=== PATIENT | female | born 1975 ===

== ENCOUNTER 2020-06-28 16:40 | Emergency (ER) | payer OTHER, SELFPAY ==
[2020-06-28 16:48] VITALS: BP 144/93; PULSE 105; RESP 16; TEMP 37.1; O2SAT 99
--- NOTE | 2020-06-28 16:54 | ED.GENADULT ---
HPI - General Adult General Chief complaint: Upper Respiratory Infection Stated complaint: sore inside nose Time Seen by Provider: 06/28/20 16:55 Source: patient and RN notes reviewed Mode of arrival: ambulatory Limitations: no limitations History of Present Illness HPI narrative: 44-year-old female presents with complaints of redness, warmth, tenderness, and swelling to right nostril for the past 2 days. Jose says approximately 1-2 weeks ago she noted a sore to inside of RT nostril then redness and warmth. No treatment. Denies radiation of tenderness, redness, or swelling. Exacerbating factors sneezing. Denies open areas or drainage. Denies fever or chills. No facial swelling. The patient reports she have not been diagnosed with COVID-19. The patient reports she is not waiting for the results of a COVID-19 lab test. The patient reports she do not have weakness or fatigue. The patient reports she do not have a new or worsening cough or shortness of breath. Denies chest pain. The patient reports she do not have any rhinorrhea, congestion, sore throat, loss of taste, nausea, vomiting, abdominal pain, and diarrhea. Tolerating po intake well. Denies recent traveling. Denies concerns for COVID-19 or exposures been home with limited outdoor exposure except for essential household needs and return home. At this time, patient is not suspected of having COVID-19. Some parts of this dictation were generated by voice recognition software and may contain typographical and/or grammatical inaccuracies. Related Data Allergies Allergy/AdvReac Type Severity Reaction Status Date / Time ibuprofen Allergy Unknown Rash Verified 06/28/20 16:51 Penicillins Allergy Unknown Rash Verified 06/28/20 16:51 Review of Systems Review of Systems: Narrative: CONSTITUTIONAL: Denies fever, chills, sweats. EYES: Denies visual changes, redness, discharge. ENT: Denies rhinorrhea, congestion, sore throat, otalgia. CARDIOVASCULAR: Denies chest pain, palpitations, edema. RESPIRATORY: Denies dyspnea, wheezing, cough. GASTROINTESTINAL: Denies abdominal pain, nausea, vomiting, diarrhea. SKIN: Complaints of redness, warmth, tenderness, and swelling to right nostril. MUSCULOSKELETAL: Denies acute back pain, joint pain, or myalgia. NEUROLOGIC: Denies numbness or focal weakness. PSYCHIATRIC: Denies anxiety or depression. All systems reviewed & are unremarkable except as noted in HPI and below. [facility] Past Medical History Medical History (Updated 06/28/20 @ 17:08 by NICOL Florian) Hypertension Surgical History Surgical History (Updated 06/28/20 @ 17:08 by NICOL Florian) History of breast augmentation History of loop electrosurgical excision procedure (LEEP) History of tubal ligation Family History Family History (Updated 06/28/20 @ 17:09 by NICOL Florian) Father Non-Hodgkin lymphoma Mother Heart disease Cerebrovascular accident Social History Social History (Updated 06/28/20 @ 17:11 by NICOL Florian) Smoking packs per day: 1 Smoking cigarettes per day: 20.0 Years smoked: 31 Smoking pack-years: 31.00 Smoking status: Current every day smoker Tobacco type: cigarettes Second hand tobacco smoke exposure: Yes Alcohol intake: current Substance use: never Living arrangements: with family Occupation/Education: unemployed Gender identity (if verbalized by the patient): Female Sexual Orientation (if Verbalized by the Patient): Straight or Heterosexual Comments At time of signature, agree with nurse past medical, surgical, social, and family history. There is no relevant family history pertinent to the presenting complaint. Exam Narrative: Exam Narrative: GENERAL: This is a well-nourished, well-developed patient, in no apparent distress. HEAD: normocephalic, atraumatic. EYES: PERRL. Sclera clear/white. Vision is grossly intact. CARDIOVASCULAR: Regular ra
== END 2020-06-28 17:10 | disposition home or self-care (01) ==
PROVIDERS: Emergency Provider Nurse Practitioner Family
DX: L73.9 Follicular disorder, unspecified (principal); F17.219 Nicotine dependence, cigarettes, with unspecified nicotine-induced disorders; I10 Essential (primary) hypertension
CPT/HCPCS: 99213; G0463